=== PATIENT | male | born 1995 | race Caucasian/White ===

== ENCOUNTER 2018-11-24 10:47 | Outpatient (CLI) | payer OTHER | END 2018-11-24 10:48 | disposition critical access hospital (66) | LOC: EMS 10:47 | PROVIDERS: ATTEND Surgery | DX: S51.812A Laceration without foreign body of left forearm, initial encounter (principal); W26.8XXA Contact with other sharp object(s), not elsewhere classified, initial encounter; Y93.89 Activity, other specified; Y92.009 Unspecified place in unspecified non-institutional (private) residence as the place of occurrence of the external cause | CPT/HCPCS: A0425; A0427 ==

== ENCOUNTER 2018-11-24 11:07 | Emergency (ER) | payer OTHER ==
[2018-11-24] MEDS ORDERED: SODIUM CHLORIDE 0.9% NAS STA ×2 (11:15→13:06)
[2018-11-24] MEDS ORDERED: TRANEXAMIC ACID NAS STA ×2 (11:15→13:06)
[2018-11-24] MEDS ORDERED: TETANUS/DIPHTHERIA/PERTUSSIS 0.5 ML SYRINGE IM ONE (11:16)
[2018-11-24] MEDS ORDERED: ceFAZolin 1 GM in SODIUM CHLORIDE 0.9% MINIBAG 100 ML IV STA (11:16)
--- NOTE | 2018-11-24 11:26 | ED Physician Documentation ---
History of Present Illness - Stated complaint Stated Complaint: ARM LAC - Additonal information Additional information: hx from pt 23 male lac to L FA on glass heavy bleeding cannot flex wrist and finger 3-5 last ate 10PM last night all to sulfa otherwise healthy Review of Systems Skin: reports: Laceration (s) Neurologic: reports: Focal weakness. denies: Numbness PD PAST MEDICAL HISTORY - Allergies Allergies/Adverse Reactions: Allergies Allergy/AdvReac Type Severity Reaction Status Date / Time Sulfa (Sulfonamide Allergy Hives Verified 11/24/18 11:34 Antibiotics) PD ED PE NORMAL - Vitals Vital signs reviewed: Yes - Extremities Extremities: Other (approx 5 in deep jagged lac to vito aspect mid L FA woith have but not arteria bleeding, brisk cap refill al fingers, nl sensation after pressure dressing released, weak wrist and finger 3-5 flexion) Results - Vitals Vitals: Vital Signs - 24 hr 11/24/18 11/24/18 11/24/18 11:10 13:21 14:11 Temperature 36.6 C Heart Rate 61 60 54 L Respiratory 18 18 16 Rate Blood Pressure 125/74 117/67 123/67 O2 Saturation 100 100 100 11/24/18 16:10 Temperature 36.9 C Heart Rate 66 Respiratory 16 Rate Blood Pressure 128/76 O2 Saturation 100 Oxygen O2 Source Room air - Labs Labs: Laboratory Tests 11/24/18 11/24/18 11:52 11:52 WBC 8.5 RBC 4.48 L Hgb 13.8 L Hct 39.5 L MCV 88.1 MCH 30.7 MCHC 34.8 RDW 12.5 Plt Count 228 MPV 8.7 Neut # (Auto) 6.0 Lymph # (Auto) 1.4 L [place] # (Auto) 0.6 Eos # (Auto) 0.4 Baso # (Auto) 0.1 Absolute Nucleated RBC 0.00 Nucleated RBC % 0.0 Blood Type A POSITIVE Antibody Screen NEGATIVE - Rads (name of study) arm Radiology: See rad report (no FB seen) PD MEDICAL DECISION MAKING - ED course ED course: called ortho Dr Taylor at 1115 he arrived approx 1150 and carefully examined pt and feels the repair is too complicated for [facility] and recommends transfer pt thought he was on [employer] insurance but [place] states he Sep 23 Mom thinks he may be re-enrolled 11/23/18 but this could not be confirmed after 90 min of phone calls and pt needs surgery and has started to bleed again so called [facility] and pt is accepted in transfer more bleeding so repacked wound with TXA dressing as before Departure - Departure Disposition: 02 Transfer Acute Care Hosp Clinical Impression: Laceration of left forearm with tendon involvement Qualifiers: Encounter type: initial encounter Qualified Code(s): S51.812A - Laceration without foreign body of left forearm, initial encounter Laceration of left median nerve Qualifiers: Encounter type: initial encounter Qualified Code(s): S54.12XA - Injury of median nerve at forearm level, left arm, initial encounter Condition: Fair Discharge Date/Time: 11/24/18 16:15
--- NOTE | 2018-11-24 11:56 | XRAY Report ---
Reason: eval for retained glass Procedure Date: 11/24/2018 Accession Number: [id number] / [id number] Procedure: XR - Forearm LT CPT Code: FULL RESULT: EXAM: LEFT FOREARM RADIOGRAPHY EXAM DATE: 11/24/2018 11:41 AM. CLINICAL HISTORY: Evaluate for retained glass. COMPARISON: None. TECHNIQUE: 2 views. FINDINGS: Bones: Normal. No fractures or bone lesions. Joints: Normal. No effusions or subluxations in the visualized wrist or elbow joints. Soft Tissues: Sensitivity for foreign body is somewhat limited by overlying bandage material. No definite radiopaque foreign body is detected. IMPRESSION: Limited examination with no radiopaque foreign body detected. If suspicion for deep radiopaque foreign body is high, ultrasound examination of the area with the bandage removed and a sterile probe cover in place versus CT would represent escalating imaging options. RADIA
[2018-11-24 12:03] LABS: BASOPHILS # (AUTO) 0.1 10^3/uL (0.0-0.1); BASOPHILS % (AUTO) 1.3 %; EOSINOPHILS # (AUTO) 0.4 10^3/uL (0.0-0.7); EOSINOPHILS % (AUTO) 4.5 %; HGB - HEMOGLOBIN 13.8 g/dL (14.0-18.0); LYMPHOCYTES # (AUTO) 1.4 10^3/uL (1.5-3.5); LYMPHOCYTES % (AUTO) 16.1 %; MEAN CORPUSCULAR HEMOGLOBIN 30.7 pg (27.0-31.0); MEAN CORPUSCULAR HGB CONC 34.8 g/dL (32.0-36.0); MEAN CORPUSCULAR VOLUME 88.1 fL (80.0-94.0); MEAN PLATELET VOLUME 8.7 fL (7.4-11.4); MONOCYTES # (AUTO) 0.6 10^3/uL (0.0-1.0); MONOCYTES % (AUTO) 7.4 %; NEUTROPHILS % (AUTO) 70.7 %; PLT - PLATELET COUNT 228 10^3/uL (130-450); RED BLOOD COUNT 4.48 10^6/uL (4.70-6.10); RED CELL DISTRIBUTION WIDTH 12.5 % (12.0-15.0); WHITE BLOOD COUNT 8.5 x10^3/uL (4.8-10.8)
--- NOTE | 2018-11-24 12:18 | PROVIDER PROGRESS NOTE ---
Subjective - Prog Note Date Prog Note Date: 11/24/18 Prog Note Time: 12:16 - Subjective Pt reports feeling: Worse (Patient STHH a glass pipe break and lacerated left non dominant mid -forearm volar aspect this AM. No other injuries. Unable to flex middle finger; middle finger is numb.) Objective - Vital Signs/Intake & Output Vital Signs: Vital Signs x48h Temp Pulse Resp BP Pulse Ox 11/24/18 11:10 36.6 C 61 18 125/74 100 - Lab Results Fish Bones: 11/24/18 11:52 Other Labs: Lab Results x24hrs 11/24/18 Range/Units 11:52 WBC 8.5 (4.8-10.8) x10^3/uL RBC 4.48 L (4.70-6.10) 10^6/uL Hgb 13.8 L (14.0-18.0) g/dL Hct 39.5 L (42.0-52.0) % MCV 88.1 (80.0-94.0) fL MCH 30.7 (27.0-31.0) pg MCHC 34.8 (32.0-36.0) g/dL RDW 12.5 (12.0-15.0) % Plt Count 228 (130-450) 10^3/uL MPV 8.7 (7.4-11.4) fL Neut # (Auto) 6.0 (1.5-6.6) 10^3/uL Lymph # (Auto) 1.4 L (1.5-3.5) 10^3/uL [place] # (Auto) 0.6 (0.0-1.0) 10^3/uL Eos # (Auto) 0.4 (0.0-0.7) 10^3/uL Baso # (Auto) 0.1 (0.0-0.1) 10^3/uL Absolute Nucleated RBC 0.00 x10^3/uL Nucleated RBC % 0.0 /100WBC - Other Results/Comments Other Results/Comments: EXAM: Bandaged left forearm. Bleeding controlled. Left hand: Middle finger held in a open, extended attitude. Weak flexion of DIP; Absent FDS to middle finger. Ring finger in semi-extended extended attitude as well. Sensation - diminished middle finger sensation volar aspect. Good cap filling of all digits. Assessment/Plan - Problem List (1) Laceration of left forearm with tendon involvement Qualifiers: Encounter type: initial encounter Qualified Code(s): S51.812A - Laceration without foreign body of left forearm, initial encounter; S56.922A - Laceration of unspecified muscles, fascia and tendons at forearm level, left arm, initial encounter (2) Laceration of left median nerve Impression: Stable PLAN: Refer to Hand surgeon for definitive care (nerve and tendon repair). Keep pressure dressing on wound. Antibiotics.
[2018-11-24] MEDS ORDERED: MORPHINE 2 MG/ML CARPUJECT IVP STA (12:24)
[2018-11-24] MEDS ORDERED: ONDANSETRON 4 MG/2 ML VIAL IVP STA (12:24)
--- NOTE | 2018-11-24 13:10 | CONSULTATION NOTE ---
DATE OF SERVICE: 11/24/2018 Physician: Miguel Taylor MD REFERRING PHYSICIAN: Dr. Tinsley of the Emergency Room Department CHIEF COMPLAINT: "I cut my left forearm." HISTORY OF PRESENT ILLNESS: Patient is a 23-year-old, right-hand dominant, male who appare ntly broke his marijuana bong (glass pipe) and sustained a glass laceration to the mid volar aspect o f his left nondominant forearm this morning. As a result of this laceration he noted a copious amoun t of bleeding from his wound as well as inability to flex his left middle finger. He was taken to [facility] emergency room for evaluation of his injuries. The patient denies any prior problems with his fore arm. PHYSICAL EXAMINATION: The patient has a pressure dressing over his forearm. Currently, the bleeding appears to be controlled grossly. Observation of his hand shows he has an extended attitude to his middle finger and to a lesser degree to his ring finger as well. The patient has just a flicker of f lexion actively of his DIP joint of the little finger. No sublimis function was elicited in the midd le finger. To a lesser degree, he had a similar presentation on the ring finger side as well. Sensa tion appears to be grossly intact to light touch to all the digits except for the middle finger volar aspect. The patient had good capillary filling noted of all the digits today. ASSESSMENT: Status post left nondominant forearm laceration - appears to have involvement of his fle xor tendons to principally the middle finger, but probably to the ring finger as well. Also, appears to have had probable partial median nerve laceration affecting primarily the volar sensory aspect of his middle finger on clinical examination. PLAN: Continue pressure dressings over his wound to control the bleeding from his wound. I would re [place] him to a hand surgeon for an evaluation to determine timing with regards to nerve repair and tend on repair from his laceration. The patient will also be given a dose of antibiotics while here in [facility] emergency room. TD: 11/24/2018 12:36
[2018-11-24] MEDS ORDERED: TRANEXAMIC ACID 1,000 MG/10 ML VIAL ONE (13:15)
[2018-11-24] MEDS ORDERED: ACETAMINOPHEN 1,000 MG/100 ML 100 ML IV STA (14:40)
[2018-11-24 16:15] VITALS: BP 128/76
== END 2018-11-24 16:15 | disposition short-term general hospital (02) ==
LOC: ED 11:07
DX: S51.812A Laceration without foreign body of left forearm, initial encounter (principal); S54.12XA Injury of median nerve at forearm level, left arm, initial encounter; S56.922A Laceration of unspecified muscles, fascia and tendons at forearm level, left arm, initial encounter; W25.XXXA Contact with sharp glass, initial encounter; Z23 Encounter for immunization
CPT/HCPCS: 36415; 73090; 85025; 86850; 86900; 86901; 90471; 90715; 96365; 96367; 96375; 99284; J0131; 99285

== ENCOUNTER 2018-11-24 16:17 | Outpatient (CLI) | payer OTHER | END 2018-11-24 16:18 | disposition short-term general hospital (02) | LOC: EMS 16:17 | PROVIDERS: ATTEND Surgery | DX: S51.812A Laceration without foreign body of left forearm, initial encounter (principal) | CPT/HCPCS: A0425; A0426 ==

== ENCOUNTER 2020-03-13 09:27 | Emergency (ER) | payer OTHER ==
[2020-03-13] MEDS ORDERED: KETOROLAC 30 MG/ML VIAL IM STA (09:58)
[2020-03-13] MEDS ORDERED: PROCHLORPERAZINE 10 MG/2 ML VIAL IM STA (09:58)
[2020-03-13] MEDS ORDERED: diphenhydrAMINE INJ 50 MG/ML VIAL IM STA (09:58)
--- NOTE | 2020-03-13 10:37 | ED Physician Documentation ---
PD HPI HEADACHE - Stated complaint Stated Complaint: HEAD PX - Chief complaint Chief Complaint: Neuro - History obtained from History obtained from: Patient - History of Present Illness Timing - onset: How many weeks ago (1) Timing - onset during: Rest Timing - duration: Weeks (1) Timing - details: Intermittant Pain level max: 7 Pain level now: 5 Location: Back, Right Quality: Throbbing, Aching. No: Thunderclap, Stabbing, Tightness, Like head is exploding Associated symptoms: No: Fever, Stiff neck, Nausea, Vomiting, Weakness, Numbness, Syncope, Seizure, Eye pain, Vision changes Improved by: Rest, Dark room, Meds (tylenol) Worsened by: Light, Noise Contributing factors: No: Anticoagulated, Possible carbon monoxide, Hype rtension, Recent illness, Trauma Recently seen: Not recently seen - Additional information Additional information: Patient has been under increasing stress recently. States people are getting laid off at his job. Has intermittent posterior right-sided headaches. No neurological deficits. No weakness or paresthesias. No difficulty with speech. No changes in vision. No vomiting. Review of Systems Constitutional: denies: Fever GI: denies: Nausea, Vomiting, Diarrhea Skin: denies: Rash Musculoskeletal: denies: Neck pain, Back pain Neurologic: denies: Focal weakness, Numbness, Confused, Altered mental status, Head injury, LOC PD PAST MEDICAL HISTORY - Past Medical History Cardiovascular: None Respiratory: None Neuro: None Endocrine/Autoimmune: None GI: None : None HEENT: None Psych: None Musculoskeletal: None Derm: Eczema - Past Surgical History Past Surgical History: Yes HEENT: Myringotomy (tubes), Tonsil/Adenoidectomy - Present Medications Home Medications: Ambulatory Orders Medication Instructions Recorded Confirmed No Known Home Medications 03/13/20 03/13/20 - Allergies Allergies/Adverse Reactions: Allergies Allergy/AdvReac Type Severity Reaction Status Date / Time Sulfa (Sulfonamide Allergy Hives Verified 03/13/20 09:35 Antibiotics) - Social History Does the pt smoke?: Yes Smoking Status: Current every day smoker Does the pt drink ETOH?: Yes Does the pt have substance abuse?: Yes Substance Use and Type: Marijuana - Immunizations Immunizations are current?: No Immunizations: TDAP >10years/unknown - POLST Patient has POLST: No PD ED PE NORMAL - Vitals Vital signs reviewed: Yes - General General: Alert and oriented X 3, No acute distress, Well developed/nourished - HEENT HEENT: PERRL, Moist mucous membranes - Neck Neck: Supple, no meningeal sign - Cardiac Cardiac: RRR, Strong equal pulses - Respiratory Respiratory: No respiratory distress, Clear bilaterally - Abdomen Abdomen: Soft, Non tender, Non distended - Back Back: No spinal TTP - Derm Derm: Warm and dry - Extremities Extremities: No deformity - Neuro Neuro: Alert and oriented X 3, 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 Headache resolved. We will allow him to go home at this time. If his headache recurs or seems to be worse jessica, will consider neuroimaging at that time. Patient counseled regarding signs and symptoms for which I believe and urgent re-evaluation would be necessary. Patient with good understanding of and agreement to plan and is comfortable going home at this time This document was made in part using voice recognition software. While efforts are made to proofread this document, sound alike and grammatical errors may occur. Departure - Departure Disposition: 01 Home, Self Care Clinical Impression: Headache Qualifiers: Headache type: unspecified Headache chronicity pattern: acute headache Intractability: not intractable Qualified Code(s): R51 - Headache Condition: Good Instructions: ED Headache Tension Follow-Up: Your,doctor in 1 week [Other] Comments: Follow-up with your doctor within 1 week. Return if you worsen. Go home and rest today. Do not drive or operate heavy machinery today.
[2020-03-13 10:58] VITALS: BP 137/89
== END 2020-03-13 10:58 | disposition home or self-care (01) ==
LOC: ED 09:27
DX: R51 Headache (principal); F17.200 Nicotine dependence, unspecified, uncomplicated
CPT/HCPCS: 96372; 99283; 99284; J1200

== ENCOUNTER 2023-10-21 13:45 | Outpatient (CLI) | payer OTHER ==
[2023-10-21 17:41] LABS: BASOPHILS # (AUTO) 0.1 10^3/uL (0.0-0.1); BASOPHILS % (AUTO) 1.1 %; EOSINOPHILS # (AUTO) 0.1 10^3/uL (0.0-0.7); EOSINOPHILS % (AUTO) 1.1 %; HCT - HEMATOCRIT 45.7 % (42.0-52.0); HGB - HEMOGLOBIN 15.3 g/dL (14.0-18.0); LYMPHOCYTES # (AUTO) 1.5 10^3/uL (1.5-3.5); LYMPHOCYTES % (AUTO) 19.8 %; MEAN CORPUSCULAR HEMOGLOBIN 29.9 pg (27.0-31.0); MEAN CORPUSCULAR HGB CONC 33.5 g/dL (32.0-36.0); MEAN CORPUSCULAR VOLUME 89.3 fL (80.0-94.0); MEAN PLATELET VOLUME 11.2 fL (7.4-11.4); MONOCYTES # (AUTO) 0.6 10^3/uL (0.0-1.0); MONOCYTES % (AUTO) 8.4 %; NEUTROPHILS # (AUTO) 5.1 10^3/uL (1.5-6.6); NEUTROPHILS % (AUTO) 69.3 %; PLT - PLATELET COUNT 269 10^3/uL (130-450); RED BLOOD COUNT 5.12 10^6/uL (4.70-6.10); RED CELL DISTRIBUTION WIDTH 11.6 % (12.0-15.0); WHITE BLOOD COUNT 7.4 x10^3/uL (4.8-10.8)
[2023-10-21 18:53] LABS: ALBUMIN 4.8 g/dL (3.2-5.5); ALBUMIN/GLOBULIN RATIO 1.7 (1.0-2.2); BILIRUBIN,TOTAL 0.6 mg/dL (0.2-1.0); CALCIUM 10.2 mg/dL (8.5-10.3); CREATININE 0.8 mg/dL (0.6-1.3); TOTAL PROTEIN 7.6 g/dL (6.4-8.9)
[2023-10-21 19:06] LABS: THYROID STIMULATING HORMONE 0.85 uIU/mL (0.34-5.60)
== END 2023-10-21 14:00 | disposition home or self-care (01) ==
LOC: LAB.N 13:45
PROVIDERS: ATTEND Family Medicine
DX: B34.9 Viral infection, unspecified (principal); R07.89 Other chest pain
CPT/HCPCS: 36415; 80053; 84443; 85025; 85651

== ENCOUNTER 2023-10-31 19:50 | Emergency (ER) | payer OTHER ==
[2023-10-31 20:07] VITALS: O2SAT 98
--- NOTE | 2023-10-31 20:14 | ED Physician Documentation ---
PD HPI CHEST PAIN - Stated complaint Stated Complaint: CHEST PX - Chief complaint Chief Complaint: Cardiac - History obtained from History obtained from: Patient - Additional information Additional information: Previously healthy 28-year-old was having episodic chest pain, heart racing, and feeling like his blood pressure was high. Because of that a few weeks ago stopped using marijuana, nicotine, and alcohol. Had an episode last week and was seen at the urgent care with negative workup. Had another episode this evening starting at 6 PM about a half an hour after reinstituting cannabis use, was sweaty, felt like his heart rate was high and his blood pressure was high and had substernal chest pressure. It is better now. No pedal edema or calf pain. Not short of breath. PD PAST MEDICAL HISTORY - Past Medical History Past Medical History: No Cardiovascular: None Respiratory: None Neuro: None Endocrine/Autoimmune: None GI: None : None HEENT: None Psych: None Musculoskeletal: None Derm: Eczema - Past Surgical History Past Surgical History: Yes HEENT: Myringotomy (tubes), Tonsil/Adenoidectomy - Present Medications Home Medications: Ambulatory Orders Medication Instructions Recorded Confirmed No Known Home Medications 03/13/20 03/13/20 - Allergies Allergies/Adverse Reactions: Allergies Allergy/AdvReac Type Severity Reaction Status Date / Time Sulfa (Sulfonamide Allergy Hives Verified 10/31/23 19:57 Antibiotics) - Social History Does the pt smoke?: Yes Smoking Status: Current every day smoker Does the pt drink ETOH?: Yes Does the pt have substance abuse?: Yes - Immunizations Immunizations are current?: No Immunizations: TDAP >10years/unknown - POLST Patient has POLST: No PD ED PE NORMAL - Vitals Vital signs reviewed: Yes - General General: Alert and oriented X 3, No acute distress - HEENT HEENT: PERRL, EOMI - Neck Neck: Supple, no meningeal sign, No bony TTP - Cardiac Cardiac: RRR, No murmur - Respiratory Respiratory: No respiratory distress, Clear bilaterally - Abdomen Abdomen: Non tender - Extremities Extremities: No edema, No calf tenderness / cord - Neuro Neuro: Alert and oriented X 3, Normal speech Results - Vitals Vitals: Vital Signs - 24 hr 10/31/23 10/31/23 19:57 21:08 Temperature 36.5 C Heart Rate 100 68 Respiratory 16 12 Rate Blood Pressure 158/95 H 131/80 H O2 Saturation 98 98 Oxygen O2 Source Room air - EKG (time done) 2012 EKG releavant findings:: EKG personally interpreted by author of this note. Relevant findings are: Rate: Rate (enter#) (72) Rhythm: NSR [place]: Normal Intervals: Normal [place] QRS: Normal Ischemia: Normal ST segments - Labs Labs: Laboratory Tests 10/31/23 20:24 Troponin I High Sens 2.5 PD Medical Decision Making - ED course ED course: 28-year-old with atypical resolved chest pain after using cannabis. EKG, chest x-ray And troponin negative. It has been somewhat of a recurrent issue so consideration for prolonged cardiac monitoring was advised and he understands. Departure - Departure Disposition: 01 Home, Self Care Clinical Impression: Atypical chest pain Condition: Good Record reviewed to determine appropriate education?: Yes Instructions: ED Chest Pain NonCardiac Comments: No clear cause of your symptoms, but as discussed reasonable to abstain from cannabis. Also see the list of primary care physicians below as if you were to have persistent issues would be reasonable to have you set up with a prolonged keyboard specialist such as a "Zio patch." Return for new or worsening symptoms. Forms: PCP List Discharge Date/Time: 10/31/23 21:08
[2023-10-31 21:09] VITALS: BP 131/80
--- NOTE | 2023-10-31 21:28 | XRAY Report ---
PROCEDURE: Chest 1 View X-Ray INDICATIONS: chest pain TECHNIQUE: One view of the chest was acquired. COMPARISON: None. FINDINGS: Surgical changes and devices: None. Lungs and pleura: No pleural effusions or pneumothorax. Lungs are clear. Mediastinum: Mediastinal contours appear normal. Heart size is normal. Bones and chest wall: No suspicious bony lesions. Overlying soft tissues appear unremarkable. IMPRESSION: No acute cardiopulmonary process. Source of chest pain is not found. Reviewed by: Sheldon Kerr MD on 10/31/2023 9:26 PM [facility] Approved by: Sheldon Kerr MD on 10/31/2023 9:26 PM [facility] Station ID: [id number]
== END 2023-10-31 21:08 | disposition home or self-care (01) ==
LOC: ED 19:50
DX: R07.89 Other chest pain (principal); F17.200 Nicotine dependence, unspecified, uncomplicated
CPT/HCPCS: 36415; 84484; 93005; 99283; 99284

== ENCOUNTER 2023-11-05 00:18 | Emergency (ER) | payer OTHER ==
[2023-11-05 00:40] VITALS: BP 158/91; O2SAT 100
--- NOTE | 2023-11-05 01:20 | ED Physician Documentation ---
History of Present Illness - Stated complaint Stated Complaint: CHEST PX/TINGLING ARMS/HIGH BP - Chief complaint Chief Complaint: Cardiac - History obtained from History obtained from: Patient - Additonal information Additional information: 28yM daily smoker, otherwise healthy p/w R sided chest pain and extremity tingling when going to sleep tonight. patient had similar workup a couple days ago in our ED without any findings. denies n/v cough soa, diaphoresis or leg swelling. PD PAST MEDICAL HISTORY - Past Medical History Past Medical History: Yes Cardiovascular: None Respiratory: None Neuro: None Endocrine/Autoimmune: None GI: None : None HEENT: None Psych: None Musculoskeletal: None Derm: Eczema - Past Surgical History Past Surgical History: Yes HEENT: Myringotomy (tubes), Tonsil/Adenoidectomy - Present Medications Home Medications: Ambulatory Orders Medication Instructions Recorded Confirmed No Known Home Medications 03/13/20 03/13/20 - Allergies Allergies/Adverse Reactions: Allergies Allergy/AdvReac Type Severity Reaction Status Date / Time Sulfa (Sulfonamide Allergy Hives Verified 10/31/23 19:57 Antibiotics) - Social History Does the pt smoke?: Yes Smoking Status: Current every day smoker Does the pt drink ETOH?: Yes Does the pt have substance abuse?: Yes - Immunizations Immunizations are current?: No Immunizations: TDAP >10years/unknown - POLST Patient has POLST: No PD ED PE NORMAL - Vitals Vital signs reviewed: Yes - General General: Alert and oriented X 3, No acute distress, Well developed/nourished - HEENT HEENT: Atraumatic, PERRL, EOMI - Neck Neck: Supple, no meningeal sign - Cardiac Cardiac: RRR - Respiratory Respiratory: No respiratory distress, Clear bilaterally - Abdomen Abdomen: Non tender, Non distended - Derm Derm: Normal color, Warm and dry - Extremities Extremities: No edema - Neuro Neuro: Alert and oriented X 3 Results - Vitals Vitals: Vital Signs - 24 hr 11/05/23 00:33 Temperature 36.7 C Heart Rate 64 Respiratory 16 Rate Blood Pressure 158/91 H O2 Saturation 100 Oxygen O2 Source Room air - EKG (time done) 0041 EKG releavant findings:: EKG personally interpreted by author of this note. Relevant findings are: Rate: Rate (enter#) (58) Rhythm: NSR [place]: Normal Intervals: Normal [place] Ischemia: ST elevation c/w repol PD Medical Decision Making - ED course ED course: 28yM presents with atypical chest pain symptoms, now resolved. patient is well appearing with benign vitals and ekg. he just had full cardiac workup here a couple days prior without any findings of concern. discussed symptom care. return precautions given. plan to f/u pcp. Departure - Departure Disposition: Home, Self Care Clinical Impression: Chest pain Condition: Good Instructions: ED Chest Pain NonCardiac Comments: You were seen in the emergency department for chest pain that is not heart related. Please follow-up with your primary care provider and return to the emergency department if you have any new or worsening symptoms or other concerns. Check out youtube channel "[email or web address]" for relaxing videos before bed. Forms: PCP List
== END 2023-11-05 02:10 | disposition home or self-care (01) ==
LOC: ED 00:18
DX: R07.9 Chest pain, unspecified (principal); F17.200 Nicotine dependence, unspecified, uncomplicated
CPT/HCPCS: 99281; 99283

== ENCOUNTER 2023-11-23 14:36 | Emergency (ER) | payer OTHER ==
[2023-11-23 15:48] LABS: B. PARAPERTUSSIS- RESP PCR PAN NOT DETECTED; B. PERTUSSIS- RESP PCR PANEL NOT DETECTED; C. PNEUMONIAE- RESP PCR PANEL NOT DETECTED; CORONAVIRUS 229E-RESP PCR NOT DETECTED; CORONAVIRUS HKU1-RESP PCR NOT DETECTED; CORONAVIRUS NL63-RESP PCR NOT DETECTED; CORONAVIRUS OC43-RESP PCR NOT DETECTED; HUMAN METAPNEUMOVIRUS NOT DETECTED; INFLUENZA A- RESP PCR PANEL NOT DETECTED; INFLUENZA B - RESP PCR PANEL DETECTED; M. PNEUMONIAE- RESP PCR PANEL NOT DETECTED; PARAINFLUENZA VIRUS 1 NOT DETECTED; PARAINFLUENZA VIRUS 2 NOT DETECTED; PARAINFLUENZA VIRUS 3 NOT DETECTED; PARAINFLUENZA VIRUS 4 NOT DETECTED; RHINOVIRUS/ENTEROVIRUS NOT DETECTED; RSV- RESP PCR PANEL NOT DETECTED; SARS-CoV-2 -RESP PCR PANEL NOT DETECTED
--- NOTE | 2023-11-23 16:16 | ED Physician Documentation ---
PD HPI URI - Stated complaint Stated Complaint: FEVER/HEAD PX - Chief complaint Chief Complaint: Heent - History obtained from History obtained from: Patient - Additional information Additional information: 28-year-old male presents with fever, headache and generalized body aches, cough, nasal congestion, nausea and vomiting since yesterday. The nausea vomiting did not start until today. He has not taken any antipyretics due to the nausea and vomiting. He has been tolerating some sips of fluid however. He denies any known sick contacts. He denies any chest pain, no shortness of breath, no abdominal pain, no dysuria urgency or frequency. PD PAST MEDICAL HISTORY - Past Medical History Past Medical History: Yes Cardiovascular: None Respiratory: None Neuro: None Endocrine/Autoimmune: None GI: None : None HEENT: None Psych: None Musculoskeletal: None Derm: Eczema - Past Surgical History Past Surgical History: Yes HEENT: Myringotomy (tubes), Tonsil/Adenoidectomy - Present Medications Home Medications: Ambulatory Orders Medication Instructions Recorded Confirmed Codeine Phosphate/Guaifenesin 5 - 10 ml PO Q4H PRN #118 ml 11/23/23 [Codeine-Guaifen 10-100 mg/5 ml] Ondansetron Odt [Zofran] 4 mg TL Q6H PRN #10 tablet 11/23/23 - Allergies Allergies/Adverse Reactions: Allergies Allergy/AdvReac Type Severity Reaction Status Date / Time Sulfa (Sulfonamide Allergy Hives Verified 11/23/23 14:47 Antibiotics) - Social History Does the pt smoke?: Yes Smoking Status: Current every day smoker Does the pt drink ETOH?: Yes Does the pt have substance abuse?: Yes - Immunizations Immunizations are current?: No Immunizations: TDAP >10years/unknown - POLST Patient has POLST: No PD ED PE NORMAL - Vitals Vital signs reviewed: Yes - General General: Alert and oriented X 3, No acute distress, Well developed/nourished - HEENT HEENT: Atraumatic, Moist mucous membranes, Pharynx benign - Neck Neck: Supple, no meningeal sign, No adenopathy - Cardiac Cardiac: RRR, No murmur, No gallop, No rub - Respiratory Respiratory: No respiratory distress, Clear bilaterally - Abdomen Abdomen: Normal bowel sounds, Soft, Non tender, Non distended Results - Vitals Vitals: Vital Signs - 24 hr 11/23/23 11/23/23 14:44 16:12 Temperature 37.5 C 100.6 C H Heart Rate 95 106 H Respiratory 16 18 Rate Blood Pressure 139/83 H 110/67 O2 Saturation 96 97 Oxygen O2 Source Room air - Labs Labs: Laboratory Tests 11/23/23 14:49 Nasal Adenovirus (PCR) NOT DETECTED Nasal B. parapertussis DNA (PCR) NOT DETECTED Nasal Coronavir 229E PCR NOT DETECTED Nasal Coronavir HKU1 PCR NOT DETECTED Nasal Coronavir NL63 PCR NOT DETECTED Nasal Coronavir OC43 PCR NOT DETECTED Nasal Enterovir/Rhinovir PCR NOT DETECTED Nasal Influenza B PCR DETECTED A Nasal Influenza A PCR NOT DETECTED Nasal Parainfluen 1 PCR NOT DETECTED Nasal Parainfluen 2 PCR NOT DETECTED Nasal Parainfluen 3 PCR NOT DETECTED Nasal Parainfluen 4 PCR NOT DETECTED Nasal RSV (PCR) NOT DETECTED Nasal B.pertussis DNA PCR NOT DETECTED Nasal C.pneumoniae (PCR) NOT DETECTED Francisco Human Metapneumo PCR NOT DETECTED Nasal M.pneumoniae (PCR) NOT DETECTED Nasal SARS-CoV-2 (PCR) NOT DETECTED PD Medical Decision Making - ED course Complexity details: reviewed results, considered differential, d/w patient ED course: 28-year-old male presents with the above symptoms suggestive of a viral illness or influenza. We obtained a respiratory viral swab and it was positive for influenza which is likely the cause of his symptoms. His physical exam is generally reassuring though he is mildly febrile here mildly tachycardic but nontoxic-appearing. I recommended supportive measures for the flu, and have given him a prescription for Zofran and codeine cough syrup to use only as needed. Encouraged him to try the Zofran and then take Tylenol or ibuprofen for the body aches once the Zofran has kicked it. I discussed return precautions if any worsening symptoms. The patient was discharged home in stable condition. Departure - Departure Disposition: 01 Home, Self Care Clinical Impression: Influenza Condition: Good Instructions: ED Flu Prescriptions: Codeine Phosphate/Guaifenesin [Codeine-Guaifen 10-100 mg/5 ml] 5 - 10 ml PO Q4H PRN #118 ml PRN Reason: Cough Ondansetron Odt [Zofran] 4 mg TL Q6H PRN #10 tablet PRN Reason: Nausea / Vomiting Forms: PCP List, Activity restrictions
[2023-11-23 16:20] VITALS: BP 110/67; O2SAT 97
== END 2023-11-23 16:17 | disposition home or self-care (01) ==
LOC: ED 14:36
DX: J10.1 Influenza due to other identified influenza virus with other respiratory manifestations (principal); F17.200 Nicotine dependence, unspecified, uncomplicated
CPT/HCPCS: 87633; 99283

== ENCOUNTER 2024-03-28 23:54 | Outpatient (CLI) | payer OTHER | END 2024-03-28 23:55 | disposition EMS.NT | LOC: EMS 23:54 | DX: T18.198A Other foreign object in esophagus causing other injury, initial encounter (principal); R07.0 Pain in throat; W44.8XXA Other foreign body entering into or through a natural orifice, initial encounter ==

== ENCOUNTER 2024-03-29 00:30 | Emergency (ER) | payer OTHER ==
[2024-03-29 00:52] VITALS: BP 169/98; O2SAT 98
--- NOTE | 2024-03-29 01:25 | ED Physician Documentation ---
History of Present Illness - Stated complaint Stated Complaint: OBJECT STUCK IN THROAT - Chief complaint Chief Complaint: Heent - Additonal information Additional information: Patient 28-year-old male presenting with chief complaint of object stuck in throat. Tried to swallow his amlodipine tablet, felt to get stuck in his throat. Has been tolerating his own secretions. Denies previous issues of esophageal impaction. Review of Systems Constitutional: denies: Fever Eyes: denies: Loss of vision Nose: denies: Rhinorrhea / runny nose Throat: denies: Oral lesions / sores Cardiac: denies: Chest pain / pressure Respiratory: denies: Dyspnea PD PAST MEDICAL HISTORY - Past Medical History Cardiovascular: None Respiratory: None Neuro: None Endocrine/Autoimmune: None GI: None : None HEENT: None Psych: None Musculoskeletal: None Derm: Eczema - Past Surgical History Past Surgical History: Yes HEENT: Myringotomy (tubes), Tonsil/Adenoidectomy - Present Medications Home Medications: Ambulatory Orders Medication Instructions Recorded Confirmed Codeine Phosphate/Guaifenesin 5 - 10 ml PO Q4H PRN #118 ml 11/23/23 [Codeine-Guaifen 10-100 mg/5 ml] Ondansetron Odt [Zofran] 4 mg TL Q6H PRN #10 tablet 11/23/23 - Allergies Allergies/Adverse Reactions: Allergies Allergy/AdvReac Type Severity Reaction Status Date / Time Sulfa (Sulfonamide Allergy Hives Verified 03/29/24 00:45 Antibiotics) - Social History Does the pt smoke?: Yes Smoking Status: Current every day smoker Does the pt drink ETOH?: Yes Does the pt have substance abuse?: Yes - Immunizations Immunizations are current?: No Immunizations: TDAP >10years/unknown - POLST Patient has POLST: No PD ED PE NORMAL - General General: Alert and oriented X 3 - HEENT HEENT: Atraumatic - Neck Neck: Supple, no meningeal sign - Cardiac Cardiac: RRR - Respiratory Respiratory: No respiratory distress, Clear bilaterally - Abdomen Abdomen: Normal bowel sounds Results - Vitals Vitals: Vital Signs - 24 hr 03/29/24 00:41 Temperature 36.9 C Heart Rate 71 Respiratory 16 Rate Blood Pressure 169/98 H O2 Saturation 98 Oxygen O2 Source Room air PD Medical Decision Making - ED course ED course: Patient presents with object stuck in throat. Presents with subjective feeling of his amlodipine tablet stuck in his throat. His amlodipine tablet appears to be less than 1 mm in total diameter. He was given carbonated liquid here and reported improvement in symptoms. Will discharge at this time with instructions to return for new or worsening symptoms. Departure - Departure Disposition: 01 Home, Self Care Clinical Impression: Impacted foreign body in esophagus Qualifiers: Encounter type: initial encounter Qualified Code(s): T18.108A - Unspecified foreign body in esophagus causing other injury, initial encounter Comments: Thank you for allowing us to care for you today [facility]. Glad you are feeling better. Please continue to take small sips of fluid throughout the course of the next 1 to 2 days. You may have some continued Irritation around the mucosa of your esophagus however this should resolve very quickly over the course of the next 1 to 2 days. If you are having persistent symptoms beyond that point please return.
== END 2024-03-29 01:27 | disposition home or self-care (01) ==
LOC: ED 00:30
DX: T18.198A Other foreign object in esophagus causing other injury, initial encounter (principal); W44.8XXA Other foreign body entering into or through a natural orifice, initial encounter; F17.200 Nicotine dependence, unspecified, uncomplicated
CPT/HCPCS: 99282